=== PATIENT | female | born 1990 | race African-American/Black ===

== ENCOUNTER 2016-05-08 18:42 | Emergency (ER) | payer OTHER ==
--- NOTE | ~2016-05-08 | EKG ---
PATIENT: JOEY MEZA UNIT #: [id number] Ventricular Rate: 75 BPM Atrial Rate: 75 BPM P-R Interval: 134 ms QRS Duration: 82 ms Q-T Interval: 376 ms QTC Calculation(Bezet): 419 ms P [place]: 39 degrees Calculated R [place]: 48 degrees Calculated T [place]: 27 degrees Diagnosis Line: Normal sinus rhythm Diagnosis Line: Nonspecific T wave abnormality Diagnosis Line: Abnormal ECG Diagnosis Line: No previous ECGs available Diagnosis Line: Confirmed by HARLEEN DENSON MD ([id number]) on Diagnosis Line: 05/09/2016 8:02:52 AM INTERPRETING MD: JANIYA CLEMENS
--- NOTE | ~2016-05-08 | EKG ---
PATIENT: JOEY MEZA UNIT #: [id number] Ventricular Rate: 85 BPM Atrial Rate: 85 BPM P-R Interval: 132 ms QRS Duration: 82 ms Q-T Interval: 370 ms QTC Calculation(Bezet): 440 ms P [place]: 54 degrees Calculated R [place]: 60 degrees Calculated T [place]: 7 degrees Diagnosis Line: Normal sinus rhythm Diagnosis Line: Nonspecific T wave abnormality Diagnosis Line: Abnormal ECG Diagnosis Line: No previous ECGs available Diagnosis Line: Confirmed by HARLEEN DENSON MD ([id number]) on Diagnosis Line: 05/09/2016 8:02:40 AM INTERPRETING MD: JANIYA CLEMENS
[~2016-05-08 18:42] MED LIST: AUGMENTIN PO; CLARITIN10 M1 PO
[2016-05-08 19:19] LABS: POC - CKMB <1.0 ng/mL (0.0-7.9); POC - TROPONIN <0.05 ng/mL (<=0.05)
[2016-05-08 19:21] LABS: URINE SOURCE CLEAN CATCH
[2016-05-08 19:29] LABS: URINE APPEARANCE CLEAR; URINE BILIRUBIN NEG (NEG); URINE BLOOD NEG (NEG); URINE COLOR YELLOW; URINE GLUCOSE NEG (NEG); URINE KETONE 1+ (NEG); URINE LEUKOCYTE ESTERASE NEG (NEG); URINE NITRATE NEG (NEG); URINE PH 7.5 (5-8); URINE PROTEIN NEG (NEG); URINE SPECIFIC GRAVITY 1.017 (1.003-1.035)
[2016-05-08 19:31] LABS: BASOPHIL% 0.6 % (0-2.5); EOSINOPHIL# 0.1 X10e3 (0-0.7); EOSINOPHIL% 0.9 % (0.0-7.0); HEMATOCRIT 36.4 % (35.0-45.0); HEMOGLOBIN 12.1 gm/dL (12.0-16.0); LYMPHOCYTE# 2.4 X10e3 (1.0-3.5); LYMPHOCYTE% 29.7 % (17.0-45.0); MEAN CELL VOLUME 94.7 FL (83-96); MEAN CORPUSCULAR HEMOGLOBIN 31.5 PG (28-34); MEAN CORPUSCULAR HGB CONC 33.3 g/dL (30-36); MEAN PLATELET VOLUME 8.7 FL (6.5-11.5); MONOCYTE# 0.5 X10e3 (0-1.0); MONOCYTE% 6.7 % (3.0-12.0); NEUTROPHIL# 4.9 X10e3 (1.5-7.1); NEUTROPHIL% 62.1 % (40-75); PLATELET COUNT 257 X10e3 (140-420); RED BLOOD COUNT 3.84 X10e (3.90-5.30); RED CELL DISTRIBUTION WIDTH 12.2 % (11.0-15.5)
[2016-05-08 19:32] LABS: DIFF IND NO
[2016-05-08 19:39] LABS: AMPHETAMINE NEG (NEG); BARBITURATES NEG (NEG); BENZODIAZEPINES NEG (NEG); COCAINE NEG (NEG); MARIJUANA NEG (NEG); OPIATES NEG (NEG); TRICYCLIC ANTIDEPRESSANTS NEG (NEG); U METHADONE NEG (NEG)
[2016-05-08 19:46] LABS: CULTURE INDICATED? NO
[2016-05-08 19:54] LABS: ALBUMIN SERUM 3.6 g/dL (3.5-5.0); ALKALINE PHOSPHATASE 45 U/L (32-92); ALT (SGPT) 17 U/L (10-40); AST (SGOT) 17 U/L (10-42); BILIRUBIN, DIRECT 0.1 mg/dL (0.0-0.2); BILIRUBIN,INDIRECT 0.4 mg/dL (0.0-0.9); BILIRUBIN,TOTAL 0.5 mg/dL (0.2-2.0); BLOOD UREA NITROGEN 6 mg/dL (9-23); BUN/CREATININE RATIO 8.57; CALCIUM SERUM 9.3 mg/dL (8.4-10.2); CARBON DIOXIDE 25 mmol/L (22-31); CHLORIDE 102 mmol/L (100-111); CREATININE SERUM 0.7 mg/dL (0.6-1.4); GLOM FILT RATE Estimated ABOVE60 mL/min (>60); GLUCOSE FASTING 83 mg/dL (70-110); POTASSIUM 3.3 mmol/L (3.5-5.1); SODIUM 136 mmol/L (135-145)
[2016-05-08 20:38] LABS: POC - CKMB <1.0 ng/mL (0.0-7.9); POC - TROPONIN <0.05 ng/mL (<=0.05)
== END 2016-05-08 21:13 | disposition home or self-care (01) ==
LOC: CED 18:42
PROVIDERS: Emergency Medicine
DX: O99.89 Other specified diseases and conditions complicating pregnancy, childbirth and the puerperium (principal); R00.2 Palpitations; Z3A.12 12 weeks gestation of pregnancy
CPT/HCPCS: 36415; 80048; 80076; 80307; 81003; 82553; 84443; 84484; 85025; 93005; 99283; 99284

== ENCOUNTER 2016-05-09 12:47 | Emergency (ER) | payer OTHER ==
--- NOTE | ~2016-05-09 | HM ---
Unit #: [id number] #: [id number] Patient: JOEY MEZA [id number] [address] [address] [id number] MR#: [id number] NAME: JOEY MEZA : 1990 SEX: F STUDY DATE/TIME: UNIT: TX ROOM: STUDY DESCRIPTION: Holter monitor Attending Physician: Lolis Varma P.A.-C. Primary Care Physician: [facility] CARDIOLOGY REPORT EXAM Holter monitor INDICATION Palpitations. SUMMARY The patient was monitored for 24 hours. The average heart rate was 92 beats per minute, minimum heart rate 62 beats per minute, maximum heart rate 155 beats per minute. The minimum heart rate occurred at 3:00 a.m. and the maximum at approximately 5:30 p.m. A total of 129,802 QRS complexes were analyzed. There were no pauses. Supraventricular ectopy: Two isolated beats with no runs. Ventricular ectopy: Isolated beats 2090 with one three-beat run at 105 beats per minute at 11:18 a.m. SYMPTOMS: Patient felt multiple episodes of palpitations. These were frequently associated with PVCs. Most of the PVCs were not symptomatic. IMPRESSION 1. Ventricular ectopy, slightly more frequent than normal but no significant dangerous activity. 2. Attempted to contact the ordering clinician, [place]. Unable to contact this clinician so that the clinician could let the patient know exactly what was happening. Wanted to get reassurance to the patient because of concerns when she underwent the Holter monitor. Dictated by... Dorian Horowitz/abhishek TD: 05/12/2016 19:47 JOB #: [id number] Unit #: [id number] #: [id number] Patient: JOEY MEZA CARDIOLOGY REPORT Page 1 of 1 X Titi Rivero MD HOLTER MONITOR REPORT
--- NOTE | ~2016-05-09 | EKG ---
PATIENT: JOEY MEZA UNIT #: [id number] Ventricular Rate: 85 BPM Atrial Rate: 85 BPM P-R Interval: 126 ms QRS Duration: 84 ms Q-T Interval: 368 ms QTC Calculation(Bezet): 437 ms P [place]: 42 degrees Calculated R [place]: 23 degrees Calculated T [place]: 0 degrees Diagnosis Line: Sinus rhythm with occasional Premature ventricular Diagnosis Line: complexes Diagnosis Line: Possible Left atrial enlargement Diagnosis Line: Nonspecific T wave abnormality Diagnosis Line: Abnormal ECG Diagnosis Line: When compared with ECG of 08-MAY-2016 19:48, Diagnosis Line: Premature ventricular complexes are now Present Diagnosis Line: Confirmed by FIORELLA ESPITIA MD ([id number]) on Diagnosis Line: 05/10/2016 2:22:27 PM INTERPRETING MD: NUPUR CLEMENS
== END 2016-05-09 13:45 | disposition home or self-care (01) ==
LOC: CFTX 12:47
DX: I49.3 Ventricular premature depolarization (principal); J45.909 Unspecified asthma, uncomplicated; Z98.890 Other specified postprocedural states
CPT/HCPCS: 93005; 93225; 93226; 99283

== ENCOUNTER 2016-09-11 20:28 | Emergency (ER) | payer OTHER | END 2016-09-11 21:30 | disposition HOND | LOC: CED 20:28 | DX: O60.03 Preterm labor without delivery, third trimester (principal); O99.512 Diseases of the respiratory system complicating pregnancy, second trimester; J45.909 Unspecified asthma, uncomplicated; Z3A.30 30 weeks gestation of pregnancy | CPT/HCPCS: 36415; 96360; 99283; 99285 ==

== ENCOUNTER 2016-09-22 19:30 | Emergency (ER) | payer OTHER ==
[~2016-09-22] VITALS: Ht 162.6 cm; Wt 103.4 kg
[2016-09-22 20:45] LABS: BASOPHIL% 0.4 % (0-2.5); EOSINOPHIL# 0.1 X10e3 (0-0.7); EOSINOPHIL% 0.7 % (0.0-7.0); HEMATOCRIT 34.4 % (35.0-45.0); HEMOGLOBIN 11.4 gm/dL (12.0-16.0); LYMPHOCYTE# 2.1 X10e3 (1.0-3.5); LYMPHOCYTE% 21.9 % (17.0-45.0); MEAN CELL VOLUME 93.5 FL (83-96); MEAN CORPUSCULAR HGB CONC 33.1 g/dL (30-36); MEAN PLATELET VOLUME 8.6 FL (6.5-11.5); MONOCYTE# 0.8 X10e3 (0-1.0); MONOCYTE% 8.5 % (3.0-12.0); NEUTROPHIL# 6.7 X10e3 (1.5-7.1); NEUTROPHIL% 68.5 % (40-75); PLATELET COUNT 306 X10e3 (140-420); RED BLOOD COUNT 3.68 X10e (3.90-5.30); RED CELL DISTRIBUTION WIDTH 12.6 % (11.0-15.5); WHITE BLOOD COUNT 9.8 X10e3 (4.0-10.5)
[2016-09-22 20:47] LABS: DIFF IND NO
[2016-09-22 21:17] LABS: ALBUMIN SERUM 2.9 g/dL (3.5-5.0); ALKALINE PHOSPHATASE 98 U/L (32-92); ALT (SGPT) 11 U/L (10-40); AST (SGOT) 13 U/L (10-42); BILIRUBIN,TOTAL 0.4 mg/dL (0.2-2.0); BLOOD UREA NITROGEN 5 mg/dL (9-23); BUN/CREATININE RATIO 8.33; CALCIUM SERUM 9.5 mg/dL (8.4-10.2); CARBON DIOXIDE 27 mmol/L (22-31); CHLORIDE 105 mmol/L (100-111); CREATININE SERUM 0.6 mg/dL (0.6-1.4); GLOM FILT RATE Estimated 147.9 mL/min (>60); GLUCOSE FASTING 101 mg/dL (70-110); LIPASE 24 U/L (22-51); POTASSIUM 3.7 mmol/L (3.5-5.1); PROTEIN TOTAL SERUM 6.2 g/dL (6.0-8.3); SODIUM 139 mmol/L (135-145)
[2016-09-22 21:18] LABS: BILIRUBIN, DIRECT <0.1 mg/dL (0.0-0.2); BILIRUBIN,INDIRECT 0.3 mg/dL (0.0-0.9)
[2016-09-22 21:33] LABS: URINE SOURCE CLEAN CATCH
[2016-09-22 21:41] LABS: URINE APPEARANCE TURBID; URINE BILIRUBIN NEG (NEG); URINE BLOOD NEG (NEG); URINE COLOR YELLOW; URINE GLUCOSE NEG (NEG); URINE KETONE TRACE (NEG); URINE LEUKOCYTE ESTERASE NEG (NEG); URINE NITRATE NEG (NEG); URINE PH 6.5 (5-8); URINE PROTEIN TRACE (NEG); URINE SPECIFIC GRAVITY 1.025 (1.003-1.035)
[2016-09-22 21:47] LABS: CULTURE INDICATED? NO
== END 2016-09-22 23:42 | disposition left against medical advice (07) ==
LOC: CED 19:30
DX: O99.89 Other specified diseases and conditions complicating pregnancy, childbirth and the puerperium (principal); R10.2 Pelvic and perineal pain; J45.909 Unspecified asthma, uncomplicated
CPT/HCPCS: 80048; 80076; 81003; 83690; 85025; 99284